=== PATIENT | female | born 1965 | race African-American/Black ===

== ENCOUNTER → 2016-11-06 | Day surgery (SDC) | payer OTHER ==
[~2016-11-06] VITALS: Ht 162.6 cm; Wt 86.2 kg
--- NOTE | 2016-11-06 14:00 | Operative Report ---
Operative/Inv Procedure Report Surgery Date: 11/06/16 Name of Procedure: Excision keloids face 4 cm complex closure 6 cm Excision keloid neck 1.5 cm Complex closure 2.7 cm Pre-Operative Diagnosis: Symptomatic keloids face and neck Post-Operative Diagnosis: Same Estimated Blood Loss: scant Surgeon/Programmer Numerical Control: FLAVIA NESBITT MD Anesthesia: moderate sedation Operative/Procedure Note Note: Patient was counseled in regards to the procedure the alternatives the risks and the expected outcomes as relates to excision of symptomatic keloids of the face and neck. We talked about a greater than 50% chance of recurrence definitely visible scarring possibly unsightly or symptomatic or recurrent keloid. The patient is in agreement. She is set up for postoperative radiation treatments to help reduce the risk of that occurring. Asians states she will report early recurrence as opposed to waiting. Informed consent was obtained. She was brought to the operating placed supine on the table intravenous sedation and antibiotics were given and the face and neck were prepped and draped in usual sterile fashion. Area excisions were used to excise the lesions for the above dimensions with a complex i.e. 2 layer after scar excision
== END ==
LOC: STS 01:52
DX: L91.0 Hypertrophic scar (principal)
CPT/HCPCS: 88305; J0131; J0690; J1885; J2250